=== PATIENT | male | born 1970 | race Caucasian/White ===

== ENCOUNTER 2020-03-01 09:57 | Emergency (ER) | payer MEDICAID ==
[~2020-03-01] VITALS: Ht 172.7 cm; Wt 76.2 kg
--- NOTE | 2020-03-01 10:01 | NUR ---
PATIENT WHEELCHAIR ASSISTED TO BED 7
--- NOTE | 2020-03-01 10:05 | NUR ---
pain is worst at left lower back
--- NOTE | 2020-03-01 10:05 | NUR ---
49/M c/o left lower back pain that developed an hour ago and pain later developed in left testicular pain. Denies dysuria or swelling of testicles. Denies cough, CP, SOB. Denies trauma, heavy lifting. Pt appears distressed 2/2 pain. VSS. Connected to bedside monitor. Did not take anything for the pain. med hx: denies
[2020-03-01 10:08] VITALS: BP 136/69
--- NOTE | 2020-03-01 10:09 | NUR ---
DR. MONTERROSO EVALUATING PT AT BEDSIDE
[2020-03-01] MEDS ORDERED: KETOROLAC 30 MG/ML VIAL IVP ONE (10:15)
--- NOTE | 2020-03-01 10:20 | NUR ---
TO CT SCAN VIA [place]
--- NOTE | 2020-03-01 10:30 | NUR ---
pt back to bed [address] scan
--- NOTE | 2020-03-01 10:30 | NUR ---
blood draw dropped off at lab
--- NOTE | 2020-03-01 10:32 | NUR ---
urinal provided to pt; pt is aware to give urine sample
--- NOTE | 2020-03-01 10:39 | NUR ---
urine sample dropped off at lab
[2020-03-01 10:43] LABS: APPEARANCE,URINE CLEAR (CLEAR); BILIRUBIN,URINE NEGATIVE (NEGATIVE); BLOOD, URINE 1+ (NEGATIVE); COLOR,URINE YELLOW (YELLOW); LEUKOCYTE ESTERASE ,URINE NEGATIVE (NEGATIVE); NITRITE, URINE NEGATIVE (NEGATIVE); UGLUCOSE NEGATIVE (NEGATIVE)
[2020-03-01 10:51] LABS: ANION GAP 16.6 (8-16); CARBON DIOXIDE 21.2 mmol/L (21-32); CREATININE 1.1 mg/dL (0.6-1.3); POTASSIUM 3.8 mmol/L (3.5-5.1); TOTAL BILIRUBIN 0.3 mg/dL (0.0-1.0)
[2020-03-01 11:02] LABS: BASOPHILS # (AUTO) 0.1 K/uL (0.00-0.22); BASOPHILS % (AUTO) 0.6 % (0.0-2.0); EOSINOPHILS # (AUTO) 0.2 K/uL (0-0.4); EOSINOPHILS % (AUTO) 2.4 % (0.0-4.0); HEMATOCRIT 44.9 % (36-52); HEMOGLOBIN 15.3 g/dL (12.0-18.0); LYMPHOCYTES # (AUTO) 3.4 K/uL (2.0-11.5); LYMPHOCYTES % (AUTO) 32.8 % (20.5-51.1); MEAN CORPUSCULAR HEMOGLOBIN 31 pg (27-31); MEAN CORPUSCULAR HGB CONC 34 g/dL (33-37); MEAN CORPUSCULAR VOLUME 89.2 fL (80-94); MONOCYTES # (AUTO) 0.7 K/uL (0.8-1.0); MONOCYTES % (AUTO) 6.3 % (1.7-9.3); NEUTROPHILS # (AUTO) 6.1 K/uL (1.8-7.7); NEUTROPHILS % (AUTO) 57.9 % (42.2-75.2); PLATELET COUNT (AUTO) 281 K/uL (140-450); RED BLOOD CELL COUNT(AUTO) 5.03 MIL/uL (4.20-6.10); RED CELL DISTRIBUTION WIDTH 13.6 % (11.6-13.7); WHITE BLOOD COUNT (AUTO) 10.5 K/uL (4.8-10.8)
[2020-03-01 11:06] LABS: RBC,URINE 0-5 /HPF (0-5); WBC,URINE 0-5 /HPF (0-5)
--- NOTE | 2020-03-01 11:12 | NUR ---
DR. MONTERROSO SPEAKING W/ PT AT BEDSIDE
[2020-03-01] MEDS ORDERED: ONDANSETRON 4 MG/2 ML VIAL IVP ONE (11:15)
[2020-03-01] MEDS ORDERED: fentaNYL citrate 0.05 MG/ML VIAL IVP ONE (11:15)
--- NOTE | 2020-03-01 11:30 | NUR ---
TO CT SCAN VIA [place]
--- NOTE | 2020-03-01 11:44 | NUR ---
BACK TO BED [address] SCAN
--- NOTE | 2020-03-01 12:18 | NUR ---
FREDRICK MAO ([phone]) WILL PICK PT UP
[2020-03-01 13:30] VITALS: BP 132/74
--- NOTE | 2020-03-01 13:32 | NUR ---
Patient discharged with v/s stable. Written and verbal after care instructions given and explained regarding pulmonary nodule. Patient alert, oriented and verbalized understanding of instructions. Ambulatory with steady gait. All questions addressed prior to discharge. ID band removed. Patient advised to follow up with PMD. Rx of naprosyn , flomax and norco given. Patient educated on indication of medication including possible reaction and side effects. Opportunity to ask questions provided and answered.
== END 2020-03-01 13:32 | disposition home or self-care (01) ==
LOC: MED 09:57
DX: N23 Unspecified renal colic (principal); J98.4 Other disorders of lung; R03.0 Elevated blood-pressure reading, without diagnosis of hypertension; M54.9 Dorsalgia, unspecified; F17.200 Nicotine dependence, unspecified, uncomplicated; Z71.6 Tobacco abuse counseling
CPT/HCPCS: 36415; 71260; 74176; 80053; 81001; 85025; 96374; 96375; 99285; J1885; J2405; J3010; Q9967

== ENCOUNTER 2023-02-09 14:59 | Emergency (ER) | payer MEDICAID, OTHER ==
[~2023-02-09] VITALS: Ht 172.7 cm; Wt 89.5 kg
[2023-02-09 15:23] VITALS: BP 129/86; PULSE 87; RESP 19; TEMP 97.8; O2SAT 97
[2023-02-09] MEDS ORDERED: DICL20GE TP (15:43)
== END 2023-02-09 17:08 | disposition home or self-care (01) ==
LOC: MED 14:59
DX: G89.29 Other chronic pain (principal); M19.011 Primary osteoarthritis, right shoulder; R03.0 Elevated blood-pressure reading, without diagnosis of hypertension; Z79.899 Other long term (current) drug therapy
CPT/HCPCS: 73030; 99283

== ENCOUNTER 2023-11-19 16:29 | Emergency (ER) | payer OTHER ==
[~2023-11-19] VITALS: Ht 172.7 cm; Wt 86.2 kg
[~2023-11-19 16:29] MED LIST: DICL20GE TP
[2023-11-19 16:58] VITALS: BP 125/73; PULSE 80; RESP 16; TEMP 98.4; O2SAT 97
[2023-11-19] MEDS: ACETAMINOPHEN 325 MG TAB PO ONE (18:17)
[2023-11-19] MEDS: KETOROLAC 30 MG/ML VIAL IM ONE (18:18)
[2023-11-19] MEDS: LIDOCAINE 5% 1 EA PATCH TP ONE (18:20)
[2023-11-19 18:33] LABS: BASOPHILS # (AUTO) 0.2 K/uL (0.00-0.22); BASOPHILS % (AUTO) 1.2 % (0.0-2.0); EOSINOPHILS # (AUTO) 0.1 K/uL (0-0.4); EOSINOPHILS % (AUTO) 0.7 % (0.0-4.0); HEMATOCRIT 44.6 % (36-52); HEMOGLOBIN 15.6 g/dL (12.0-18.0); LYMPHOCYTES # (AUTO) 2.3 K/uL (2.0-11.5); LYMPHOCYTES % (AUTO) 16.8 % (20.5-51.1); MEAN CORPUSCULAR HEMOGLOBIN 31 pg (27-31); MEAN CORPUSCULAR HGB CONC 35 g/dL (33-37); MEAN CORPUSCULAR VOLUME 87.8 fL (80-94); MONOCYTES # (AUTO) 0.7 K/uL (0.8-1.0); MONOCYTES % (AUTO) 5.3 % (1.7-9.3); NEUTROPHILS # (AUTO) 10.6 K/uL (1.8-7.7); PLATELET COUNT (AUTO) 307 K/uL (140-450); RED BLOOD CELL COUNT(AUTO) 5.08 MIL/uL (4.20-6.10); RED CELL DISTRIBUTION WIDTH 13.7 % (11.6-13.7)
[2023-11-19 18:39] LABS: ANION GAP 12.3 (8-16); CALCIUM 8.6 mg/dL (8.5-10.1); CARBON DIOXIDE 28.4 mmol/L (21-32); POTASSIUM 3.7 mmol/L (3.5-5.1)
[2023-11-19 18:46] LABS: ALBUMIN 3.8 g/dL (3.4-5.0); BILIRUBIN,DIRECT 0.1 mg/dL (0.0-0.3); TOTAL BILIRUBIN 0.5 mg/dL (0.0-1.0)
[2023-11-19] MEDS: ONDANSETRON 4 MG/2 ML VIAL IVP ONE (19:16)
[2023-11-19] MEDS: MORPHINE SULFATE 4 MG/ML SYR IVP ONE (19:20)
[2023-11-19] MEDS ORDERED: METH4TAB1 PO (19:28)
[2023-11-19] MEDS ORDERED: IBUP-2213 PO (19:28)
[2023-11-19] MEDS ORDERED: CYCL-711 PO (19:28)
[2023-11-19] MEDS ORDERED: DEXAMETHASONE 10 MG/ML VIAL IVP ONE (19:30)
[2023-11-19 19:38] VITALS: BP 126/64; PULSE 63; RESP 18; TEMP 98.5; O2SAT 96
== END 2023-11-19 19:38 | disposition home or self-care (01) ==
LOC: MED 16:29
DX: M54.50 Low back pain, unspecified (principal); N20.0 Calculus of kidney; Z79.899 Other long term (current) drug therapy
CPT/HCPCS: 36415; 72110; 74176; 80048; 80076; 83690; 85025; 96372; 96374; 96375; 99285; J1885; J2270; J2405